=== PATIENT | male | born 1960 | race Hispanic/Latino ===

== ENCOUNTER → 2023-03-15 | Outpatient (CLI) | payer OTHER ==
[~2023-03-15] MED LIST: IOHEXOL 350 MG/ML 100ML INFUS..BTL IV ONE
== END | disposition home or self-care (01) ==
LOC: RAH 09:26
PROVIDERS: ATTEND Student in an Organized Health Care Education/Training Program
DX: R07.9 Chest pain, unspecified (principal)
CPT/HCPCS: 75574; Q9967